=== PATIENT | female | born 1945 ===

== ENCOUNTER 2019-12-31 08:35 | Inpatient (IN) | payer MEDICARE, MEDICAID ==
[2019-12-31] MEDS ORDERED: Acetaminophen 325 MG Tab PO PRN (12:35)
[2019-12-31] MEDS ORDERED: Albuterol/Ipratropium 3.0-0.5 MG/3 ML Neb Soln INH PRN (12:45)
[2019-12-31] MEDS ORDERED: Aluminum Hydroxide/Magnesium Hydroxide/Simethicone Susp 30 ML Cup PO PRN (12:45)
[2019-12-31] MEDS ORDERED: Bisacodyl 10 MG Supp RECTAL PRN (12:45)
[2019-12-31] MEDS ORDERED: Nitroglycerin 0.4 MG Tab.SL SL PRN (12:47)
[2019-12-31] MEDS ORDERED: Docusate Sodium 100 MG Cap PO PRN (12:47)
[2019-12-31] MEDS ORDERED: Hydrocortisone 1% Crm 30 GM Tube TOP PRN (12:47)
--- NOTE | 2019-12-31 12:51 | PCM.HP ---
H&P History of Present Illness - General Date of Service: 12/31/19 Admit Problem/Dx: Admission Diagnosis/Problem Admission Diagnosis/Problem Pneumonia Source of Information: Patient History Limitations: Reports: No Limitations - History of Present Illness Initial Comments - Free Text/Narative: Patient is a 74 year-old female with a medical history of COPD on home oxygen at night, type 2 diabetes, chronic leiva due to neurogenic bladder who was hospitalized for acute on chronic hypoxic respiratory failure due to COVID-19 pneumonia. She received treatment with Decadron, antibiotics, convalescent plasma and Remdesevir. Patient also had E Coli UTI treated with antibiotics. Patient is requiring oxygen supplementation. She complains of cough. She denies fever. She feels like she has made clinical improvement since hospitalized. She was admitted to [facility] today. - Related Data Allergies/Adverse Reactions: Allergies Allergy/AdvReac Type Severity Reaction Status Date / Time brimonidine Allergy Other Verified 12/31/19 10:06 Home Medications: Home Meds Acetaminophen [Pain Relief] 1,000 mg PO Q6HR PRN 12/31/19 [History] Albuterol [Proventil HFA] 2 puff INH Q4HR PRN 12/31/19 [History] Albuterol/Ipratropium [DuoNeb 3.0-0.5 MG/3 ML] 3 ml INH Q6HR PRN 12/31/19 [History] Alum Hydrox/Mag Hydrox/Simeth [Maalox Advanced] 30 ml PO Q4HR PRN 12/31/19 [History] Ascorbic Acid [Vitamin C] 250 mg PO DAILY 12/31/19 [History] Aspirin [Halfprin] 81 mg PO DAILY 12/31/19 [History] Budesonide/Formoterol Fumarate [Symbicort 160-4.5 Mcg Inhaler] 2 puff INH BID 12/31/19 [History] Calcium Carbonate/Vitamin D3 [Calcium 600-Vit D3 400 Tablet] 1 tab PO BID 12/31/19 [History] Cetirizine [ZyrTEC] 10 mg PO BEDTIME 12/31/19 [History] Cholecalciferol (Vitamin D3) [Vitamin D3] 25 mcg PO DAILY 12/31/19 [History] Cyclobenzaprine [Flexeril] 5 mg PO BEDTIME 12/31/19 [History] Dextran 70/Hypromellose/PF [Genteal Tears 0.1%-0.3% Drop] 1 drop EYEBOTH QID PRN 12/31/19 [History] Docusate Sodium [Colace] 200 mg PO DAILY PRN 12/31/19 [History] Hydrocortisone [Hydrocortisone 1% Crm] 1 applic TOP TID PRN 12/31/19 [History] Lactulose 10 gm PO DAILY PRN 12/31/19 [History] Lipase/Protease/Amylase [Zenpep DR 20,000 Unit] 1 cap PO TIDMEALS 12/31/19 [History] Mirtazapine 30 mg PO BEDTIME 12/31/19 [History] Nitroglycerin 0.4 mg PO ASDIRECTED PRN 12/31/19 [History] Nystatin 1 applic TOP BID PRN 12/31/19 [History] Omeprazole 20 mg PO ACBREAKFAST 12/31/19 [History] Plecanatide [Trulance] 3 mg PO DAILY 12/31/19 [History] Pramipexole Di-HCl [Mirapex] 0.5 mg PO BEDTIME 12/31/19 [History] Pravastatin Sodium 10 mg PO BEDTIME 12/31/19 [History] QUEtiapine Fumarate [Seroquel Xr] 300 mg PO BEDTIME 12/31/19 [History] Varenicline Tartrate [Chantix] 1 mg PO BID 12/31/19 [History] bisacodyL [Bisacodyl] 10 mg RECTAL DAILY PRN 12/31/19 [History] dexAMETHasone [Dexamethasone] 6 mg PO DAILY 12/31/19 [History] guaiFENesin/Dextromethorphan [Tussin Dm Liquid] 10 ml PO Q4H PRN 12/31/19 [History] metFORMIN HCl [Metformin HCl] 1,000 mg PO BIDMEALS 12/31/19 [History] polyethylene glycoL 3350 [MiraLAX] 17 gm PO BID 12/31/19 [History] timoloL maleate [Timoptic 0.5% Ophth Soln] 1 drop EYEBOTH DAILY 12/31/19 [History] traZODone HCl [Trazodone HCl] 150 mg PO BEDTIME 12/31/19 [History] witch Arthur [Hemorrhoidal Medicated Wipes] 1 pad RECTAL TID 12/31/19 [History] H&P Review of Systems - Review of Systems: Review Of Systems: See Below General: Reports: No Symptoms HEENT: Reports: No Symptoms Pulmonary: Reports: Shortness of Breath, Cough Cardiovascular: Reports: No Symptoms Gastrointestinal: Reports: No Symptoms Genitourinary: Reports: No Symptoms Musculoskeletal: Reports: No Symptoms Skin: Reports: No Symptoms Psychiatric: Reports: No Symptoms Neurological: Reports: No Symptoms Hematologic/Lymphatic: Reports: No Symptoms Immunologic: Reports: No Symptoms Exam - Exam Exam: See Below - Vital Signs Vital Signs: Last Vital Signs Temp 97.6 F 12/31/19 11:48 Pulse 87 12/31/19 11:48 Resp 20 12/31/19 11:48 BP 155/95 H 12/31/19 11:48 Pulse Ox 89 L 12/31/19 11:48 Weight: 120 lb 12.8 oz - Exam Quality Assessment: Supplemental Oxygen General: Alert, Oriented, 4 HEENT: PERRLA, Hearing Intact, Mucosa Moist & [place], Nares Patent, Normal Nasal Septum, Posterior Pharynx Clear, Conjunctiva Clear, EOMI, EACs Clear, TMs Clear Neck: Supple, Trachea Midline, 2 Lungs: Crackles Cardiovascular: Regular Rate, Regular Rhythm GI/Abdominal Exam: Normal Bowel Sounds, Soft, Non-Tender, No Organomegaly, No Distention, No Abnormal Bruit, No Mass, Pelvis Stable Back Exam: Normal Inspection, Full Range of Motion, NT Extremities: Normal Inspection, Normal Range of Motion, Non-Tender, No Pedal Edema, Normal Capillary Refill Neurological: Cranial Nerves Intact, Reflexes Equal Bilateral Neuro Extensive - Mental Status: Alert, Oriented x3, Normal Mood/Affect, Normal Cognition Neuro Extensive - Motor, Sensory, Reflexes: CN II-XII Intact, Normal Gait, Normal Reflexes Psychiatric: Alert, Normal Affect, Normal Mood Problem List Initiated/Reviewed/Updated: Yes Orders Last 24hrs: Active Orders 24 hr Category Date Time Status Patient Status [ADT] Routine ADT 12/31/19 12:35 Ordered Antiembolic Devices [RC] PER UNIT ROUTINE Care 12/31/19 12:45 Ordered Oxygen Therapy [RC] PRN Care 12/31/19 12:35 Ordered RT Aerosol Therapy [RC] ASDIRECTED Care 12/31/19 12:49 Ordered RT Post Treatment Assessment [RC] Click to Edit Care 12/31/19 12:49 Ordered RT Pre-Treatment Assessment [RC] Click to Edit Care 12/31/19 12:49 Ordered Up ad Lupe [RC] ASDIRECTED Care 12/31/19 12:35 Ordered VTE/DVT Education [RC] PER UNIT ROUTINE Care 12/31/19 12:35 Ordered Vital Signs [RC] PER UNIT ROUTINE Care 12/31/19 12:35 Ordered Regular Diet [DIET] Diet 12/31/19 Lunch Ordered Acetaminophen [TylenoL] Med 12/31/19 12:35 Ordered 650 mg PO Q4H PRN Acetaminophen [Tylenol Extra Strength] Med 12/31/19 12:45 Ordered 1,000 mg PO Q6HR PRN Albuterol [Proventil HFA] Med 12/31/19 12:45 Ordered 2 puff INH Q4HR PRN Albuterol/Ipratropium [DuoNeb 3.0-0.5 MG/3 ML] Med 12/31/19 12:45 Ordered 3 ml INH Q6HR PRN Alum Hydrox/Mag Hydrox/Simeth [Mag-Al Plus] Med 12/31/19 12:45 Ordered 30 ml PO Q4HR PRN Ascorbic Acid [Vitamin C] Med 01/01/20 09:00 Ordered 250 mg PO DAILY Aspirin [Halfprin] Med 01/01/20 09:00 Ordered 81 mg PO DAILY Budesonide/Formoterol Fumarate Med 12/31/19 21:00 Ordered 2 puff INH BID Calcium Carbonate/Vitamin D3 [Calcium 600-Vit D3 400 Med 12/31/19 21:00 Ordered Tablet] 1 tab PO BID Cefpodoxime Med 12/31/19 21:00 Ordered 200 mg PO BID Cetirizine [ZyrTEC] Med 12/31/19 21:00 Ordered 10 mg PO BEDTIME Cholecalciferol (Vitamin D3) [Vitamin D3] Med 01/01/20 09:00 Ordered 25 mcg PO DAILY Cyclobenzaprine [Flexeril] Med 12/31/19 21:00 Ordered 5 mg PO BEDTIME Dextran 70/Hypromellose/PF [Genteal Tears 0.1%-0.3% Med 12/31/19 12:47 Ordered Drop] 1 drop EYEBOTH QID PRN Docusate Sodium [Colace] Med 12/31/19 12:47 Ordered 200 mg PO DAILY PRN Enoxaparin [Lovenox] Med 12/31/19 21:00 Ordered 40 mg SUBCUT Q12HR Hydrocortisone [Hydrocortisone 1% Crm] Med 12/31/19 12:47 Ordered 1 applic TOP TID PRN Lactulose [Lactulose] Med 12/31/19 12:47 Ordered 10 gm PO DAILY PRN Lipase/Protease/Amylase [Zenpep DR 20,000 Unit] Med 12/31/19 14:00 Ordered 1 cap PO TID Mirtazapine [Mirtazapine] Med 12/31/19 21:00 Ordered 30 mg PO BEDTIME Nitroglycerin [Nitrostat] Med 12/31/19 12:47 Ordered 0.4 mg SL ASDIRECTED PRN Nystatin [Nystatin] Med 12/31/19 12:47 Ordered 1 applic TOP BID PRN Omeprazole Med 01/01/20 09:00 Ordered 20 mg PO DAILY Plecanatide [Trulance] Med 01/01/20 09:00 Ordered 3 mg PO DAILY Pramipexole Di-HCl Med 12/31/19 21:00 Ordered 0.25 mg PO BEDTIME Pravastatin Sodium [Pravastatin Sodium] Med 12/31/19 21:00 Ordered 10 mg PO BEDTIME QUEtiapine Fumarate [Seroquel] Med 12/31/19 21:00 Ordered 300 mg PO BEDTIME Timolol [Betimol] Med 01/01/20 09:00 Ordered 1 drop EYEBOTH DAILY Varenicline Tartrate [Chantix] Med 12/31/19 21:00 Ordered 1 mg PO BID bisacodyL [Dulcolax] Med 12/31/19 12:45 Ordered 10 mg RECTAL DAILY PRN dexAMETHasone Med 01/01/20 09:00 Ordered 6 mg PO DAILY guaiFENesin [Robitussin] Med 12/31/19 12:47 Ordered 200 mg PO Q4HR PRN metFORMIN HCl [Metformin HCl] Med 12/31/19 21:00 Ordered 1,000 mg PO BID polyethylene glycoL 3350 [MiraLAX] Med 12/31/19 21:00 Ordered 17 gm PO BID traZODone HCl [Trazodone HCl] Med 12/31/19 21:00 Ordered 150 mg PO BEDTIME witch Arthur [Tucks] Med 12/31/19 14:00 Ordered 1 pad TOP TID Antiembolic Hose [OM.PC] Routine Oth 12/31/19 12:35 Ordered Resuscitation Status Routine Resus Stat 12/31/19 12:35 Ordered Assessment/Plan Comment:: COVID-19 pneumonia Acute on chronic hypoxic respiratory failure - complete 10 day course of Decadron - Complete 7 day course of Levaquin - Oxygen as needed UTI - Antibiotics as above Anxiety - Resume home medications Chronic pancreatitis - Resume home pancrelipase GERD - Resume home PPI Type 2 DM - Resume home metformin - SSI
[2019-12-31] MEDS ORDERED: Nystatin Topical Powder 30 GM Bottle TOP PRN (13:33)
[2019-12-31] MEDS ORDERED: Lactulose Soln 10 GM/15 ML 30 ML UD Cup PO PRN (13:37)
[2019-12-31] MEDS ORDERED: Albuterol 6.7 GM Inhaler INH PRN (14:00)
[2019-12-31] MEDS ORDERED: guaiFENesin 100 MG/5 ML Soln 5 ML UD Cup PO PRN (14:00)
[2019-12-31] MEDS ORDERED: Polyvinyl Alcohol 1.4% Ophth Soln 15 ML Bottle EYEBOTH PRN (14:19)
[2019-12-31] MEDS ORDERED: guaiFENesin/Dextromethorphan 100-10 MG/5 ML Soln 5 ML Cup PO PRN (16:02)
[2019-12-31] MEDS: Witch Hazel Medicated Pads 100/Jar TOP SCH ×2 (16:44→22:54)
[2019-12-31] MEDS ORDERED: Glucagon,Human Recombinant 1 MG Vial IM PRN (16:48)
[2019-12-31] MEDS ORDERED: 50% Dextrose in Water 50 ML Syringe IV PRN (16:48)
[2019-12-31] MEDS ORDERED: Sodium Chloride 0.9% 500 ML IV SCH (17:00)
[2019-12-31] MEDS: AMYLASE PO SCH (17:04)
[2019-12-31] MEDS: LIPASE PO SCH (17:04)
[2019-12-31] MEDS: PROTEASE PO SCH (17:04)
[2019-12-31] MEDS: Insulin Lispro 100 Units/ML 3 ML Vial SUBCUT SCH ×2 (17:38→23:01)
[2019-12-31] MEDS ORDERED: QUEtiapine 100 MG Tab PO SCH (21:00)
[2019-12-31] MEDS ORDERED: Non-Formulary Medication 1 Each (Varenicline Tartrate [Chantix] 1 MG) PO SCH (21:00)
[2019-12-31] MEDS ORDERED: metFORMIN 500 MG Tab PO SCH (21:00)
[2019-12-31] MEDS ORDERED: Pramipexole 0.125 MG Tab PO SCH (21:00)
[2019-12-31] MEDS ORDERED: Levofloxacin 500 MG Tab PO SCH (21:30)
[2019-12-31] MEDS: Formoterol/Mometasone 200-5 MCG 8.8 GM Inhaler IH SCH (22:45)
[2019-12-31] MEDS: traZODone 50 MG Tab PO SCH (22:46)
[2019-12-31] MEDS: QUETIAPINE FUMARATE 300 MG PO SCH (22:47)
[2019-12-31] MEDS: Cyclobenzaprine 10 MG Tab PO SCH (22:48)
[2019-12-31] MEDS: Pramipexole 0.125 MG Tab PO SCH (22:48)
[2019-12-31] MEDS: Calcium Carbonate/Vitamin D3 1250 MG-200 Unit Tab PO SCH (22:48)
[2019-12-31] MEDS: Pravastatin 20 MG Tab PO SCH (22:49)
[2019-12-31] MEDS: Mirtazapine 15 MG Tab PO SCH (22:50)
[2019-12-31] MEDS: Loratadine 10 MG Tab PO SCH (22:51)
[2019-12-31] MEDS: Polyethylene Glycol 3350 Powder 17 GM Packet PO SCH (22:54)
[2020-01-01] MEDS: Omeprazole 20 MG Cap.CR PO SCH (06:12)
[2020-01-01 08:57] LABS: ANION GAP 14.3 mEq/L (7-13); CHLORIDE,CL 97 mmol/L (98-107); SODIUM,NA 133 mmol/L (136-145)
[2020-01-01] MEDS ORDERED: Timolol Maleate 0.5% Ophth Soln 5 ML Bottle EYEBOTH SCH (09:00)
[2020-01-01] MEDS ORDERED: Nicotine 14 MG/24 Hr Patch TRDERM SCH (09:00)
[2020-01-01] MEDS ORDERED: Enoxaparin 40 MG/0.4 ML Syringe SUBCUT SCH (09:00)
[2020-01-01] MEDS: Calcium Carbonate/Vitamin D3 1250 MG-200 Unit Tab PO SCH ×2 (09:37→22:01)
[2020-01-01] MEDS: metFORMIN 500 MG Tab PO SCH ×2 (09:37→17:32)
[2020-01-01] MEDS: Aspirin 81 MG Tab.EC PO SCH (09:37)
[2020-01-01] MEDS: Cholecalciferol (Vitamin D3) 25 MCG Tab PO SCH (09:38)
[2020-01-01] MEDS: Ascorbic Acid 500 MG Tab PO SCH (09:38)
[2020-01-01] MEDS: Dexamethasone 4 MG Tab PO SCH (09:39)
[2020-01-01] MEDS: AMYLASE PO SCH ×3 (09:40→17:31)
[2020-01-01] MEDS: PROTEASE PO SCH ×3 (09:40→17:31)
[2020-01-01] MEDS: LIPASE PO SCH ×3 (09:40→17:31)
[2020-01-01] MEDS: Formoterol/Mometasone 200-5 MCG 8.8 GM Inhaler IH SCH ×2 (09:43→21:59)
[2020-01-01] MEDS: Polyethylene Glycol 3350 Powder 17 GM Packet PO SCH ×2 (09:44→22:07)
[2020-01-01] MEDS: Timolol Maleate 0.5% Ophth Soln 5 ML Bottle EYEBOTH SCH (09:44)
[2020-01-01] MEDS: Insulin Lispro 100 Units/ML 3 ML Vial SUBCUT SCH ×4 (09:47→21:56)
[2020-01-01] MEDS: Witch Hazel Medicated Pads 100/Jar TOP SCH ×3 (09:50→22:07)
[2020-01-01] MEDS: Pramipexole 0.125 MG Tab PO SCH (22:00)
[2020-01-01] MEDS: Cyclobenzaprine 10 MG Tab PO SCH (22:00)
[2020-01-01] MEDS: traZODone 50 MG Tab PO SCH (22:02)
[2020-01-01] MEDS: Loratadine 10 MG Tab PO SCH (22:02)
[2020-01-01] MEDS: Pravastatin 20 MG Tab PO SCH (22:02)
[2020-01-01] MEDS: Levofloxacin 250 MG Tab PO SCH (22:03)
[2020-01-01] MEDS: Mirtazapine 15 MG Tab PO SCH (22:04)
[2020-01-01] MEDS: QUETIAPINE FUMARATE 300 MG PO SCH (22:05)
[2020-01-02] MEDS: Omeprazole 20 MG Cap.CR PO SCH (05:51)
[2020-01-02] MEDS: Aspirin 81 MG Tab.EC PO SCH (08:14)
[2020-01-02] MEDS: Dexamethasone 4 MG Tab PO SCH (08:14)
[2020-01-02] MEDS: Calcium Carbonate/Vitamin D3 1250 MG-200 Unit Tab PO SCH ×2 (08:14→23:31)
[2020-01-02] MEDS: metFORMIN 500 MG Tab PO SCH ×2 (08:15→17:38)
[2020-01-02] MEDS: Ascorbic Acid 500 MG Tab PO SCH (08:15)
[2020-01-02] MEDS: Insulin Lispro 100 Units/ML 3 ML Vial SUBCUT SCH ×4 (08:17→23:35)
[2020-01-02] MEDS: LIPASE PO SCH ×3 (08:19→17:04)
[2020-01-02] MEDS: PROTEASE PO SCH ×3 (08:19→17:04)
[2020-01-02] MEDS: AMYLASE PO SCH ×3 (08:19→17:04)
[2020-01-02] MEDS: Polyethylene Glycol 3350 Powder 17 GM Packet PO SCH ×2 (08:20→23:39)
[2020-01-02] MEDS: Formoterol/Mometasone 200-5 MCG 8.8 GM Inhaler IH SCH ×2 (08:21→23:34)
[2020-01-02] MEDS: Enoxaparin 40 MG/0.4 ML Syringe SUBCUT SCH (08:21)
[2020-01-02] MEDS: Timolol Maleate 0.5% Ophth Soln 5 ML Bottle EYEBOTH SCH (10:10)
[2020-01-02] MEDS: Witch Hazel Medicated Pads 100/Jar TOP SCH ×4 (10:10→23:41)
[2020-01-02] MEDS: Cholecalciferol (Vitamin D3) 25 MCG Tab PO SCH (10:11)
[2020-01-02] MEDS: Cyclobenzaprine 10 MG Tab PO SCH (23:24)
[2020-01-02] MEDS: Pramipexole 0.125 MG Tab PO SCH (23:27)
[2020-01-02] MEDS: Mirtazapine 15 MG Tab PO SCH (23:27)
[2020-01-02] MEDS: traZODone 50 MG Tab PO SCH (23:28)
[2020-01-02] MEDS: Loratadine 10 MG Tab PO SCH (23:29)
[2020-01-02] MEDS: Pravastatin 20 MG Tab PO SCH (23:30)
[2020-01-02] MEDS: Levofloxacin 250 MG Tab PO SCH (23:32)
[2020-01-02] MEDS: QUETIAPINE FUMARATE 300 MG PO SCH (23:38)
[2020-01-03] MEDS: Omeprazole 20 MG Cap.CR PO SCH (06:33)
[2020-01-03 07:16] LABS: ANION GAP 14.7 mEq/L (7-13); CHLORIDE,CL 98 mmol/L (98-107); SODIUM,NA 133 mmol/L (136-145)
[2020-01-03] MEDS: Witch Hazel Medicated Pads 100/Jar TOP SCH ×3 (09:26→22:11)
[2020-01-03] MEDS: metFORMIN 500 MG Tab PO SCH ×2 (09:28→17:10)
[2020-01-03] MEDS: Ascorbic Acid 500 MG Tab PO SCH (09:28)
[2020-01-03] MEDS: Dexamethasone 4 MG Tab PO SCH (09:30)
[2020-01-03] MEDS: Calcium Carbonate/Vitamin D3 1250 MG-200 Unit Tab PO SCH ×2 (09:30→22:08)
[2020-01-03] MEDS: Cholecalciferol (Vitamin D3) 25 MCG Tab PO SCH (09:30)
[2020-01-03] MEDS: Aspirin 81 MG Tab.EC PO SCH (09:31)
[2020-01-03] MEDS: Enoxaparin 40 MG/0.4 ML Syringe SUBCUT SCH (09:31)
[2020-01-03] MEDS: Polyethylene Glycol 3350 Powder 17 GM Packet PO SCH ×2 (09:31→22:08)
[2020-01-03] MEDS: Formoterol/Mometasone 200-5 MCG 8.8 GM Inhaler IH SCH ×2 (09:39→22:10)
[2020-01-03] MEDS: Timolol Maleate 0.5% Ophth Soln 5 ML Bottle EYEBOTH SCH (09:40)
[2020-01-03] MEDS: Insulin Lispro 100 Units/ML 3 ML Vial SUBCUT SCH ×4 (09:40→21:55)
[2020-01-03] MEDS: PROTEASE PO SCH ×3 (09:41→17:10)
[2020-01-03] MEDS: AMYLASE PO SCH ×3 (09:41→17:10)
[2020-01-03] MEDS: LIPASE PO SCH ×3 (09:41→17:10)
--- NOTE | 2020-01-03 12:21 | PCM.PN ---
- General Info Date of Service: 01/03/20 Admission Dx/Problem (Free Text): Admission Diagnosis/Problem Admission Diagnosis/Problem Pneumonia Subjective Update: Patient seen and examined today. Has no new complains. Occasional cough. Afebrile. - Review of Systems General: Reports: No Symptoms HEENT: Reports: No Symptoms Pulmonary: Reports: Shortness of Breath, Cough Cardiovascular: Reports: No Symptoms Gastrointestinal: Reports: No Symptoms Genitourinary: Reports: No Symptoms Musculoskeletal: Reports: No Symptoms Skin: Reports: No Symptoms Neurological: Reports: No Symptoms Psychiatric: Reports: No Symptoms - Patient Data Vitals - Most Recent: Last Vital Signs Temp 97.8 F 01/03/20 08:15 Pulse 84 01/03/20 08:15 Resp 18 01/03/20 08:15 BP 113/86 01/03/20 08:15 Pulse Ox 94 L 01/03/20 08:15 Weight - Most Recent: 120 lb 12.8 oz I&O - Last 24 Hours: Intake & Output 01/02/20 01/03/20 01/03/20 22:59 06:59 14:59 Intake Total 009 328 3756 Output Total 600 Balance 600 -200 1120 Lab Results Last 24 Hours: Laboratory Results - last 24 hr 01/02/20 01/02/20 01/02/20 Range/Units 12:10 17:01 23:13 WBC (5.0-10.0) 10^3/uL RBC (4.2-5.4) 10^6/uL Hgb (12.0-16.0) g/dL Hct (37.0-47.0) % MCV (80-100) fL MCH (27.0-34.0) pg MCHC (33.0-35.0) g/dL Plt Count (150-450) 10^3/uL Sodium (136-145) mmol/L Potassium (3.5-5.1) mmol/L Chloride (98-107) mmol/L Carbon Dioxide (21-32) mmol/L Anion Gap (7-13) mEq/L BUN (7-18) mg/dL Creatinine (0.55-1.02) mg/dL Est Cr Clr Drug Dosing mL/min Estimated GFR (MDRD) Glucose (74-99) mg/dL POC Glucose 237 H 391 H 210 H (83-110) mg/dl Calcium (8.5-10.1) mg/dL 01/03/20 01/03/20 01/03/20 Range/Units 06:45 06:45 08:15 WBC 16.2 H (5.0-10.0) 10^3/uL RBC 3.52 L (4.2-5.4) 10^6/uL Hgb 11.0 L (12.0-16.0) g/dL Hct 33.6 L (37.0-47.0) % MCV 95.5 (80-100) fL MCH 31.3 (27.0-34.0) pg MCHC 32.7 L (33.0-35.0) g/dL Plt Count 551 H D (150-450) 10^3/uL Sodium 133 L (136-145) mmol/L Potassium 4.7 (3.5-5.1) mmol/L Chloride 98 (98-107) mmol/L Carbon Dioxide 25 (21-32) mmol/L Anion Gap 14.7 H (7-13) mEq/L BUN 24 H (7-18) mg/dL Creatinine 0.77 (0.55-1.02) mg/dL Est Cr Clr Drug Dosing 57.13 mL/min Estimated GFR (MDRD) > 60 Glucose 174 H (74-99) mg/dL POC Glucose 197 H (83-110) mg/dl Calcium 10.8 H (8.5-10.1) mg/dL 01/03/20 Range/Units 10:54 WBC (5.0-10.0) 10^3/uL RBC (4.2-5.4) 10^6/uL Hgb (12.0-16.0) g/dL Hct (37.0-47.0) % MCV (80-100) fL MCH (27.0-34.0) pg MCHC (33.0-35.0) g/dL Plt Count (150-450) 10^3/uL Sodium (136-145) mmol/L Potassium (3.5-5.1) mmol/L Chloride (98-107) mmol/L Carbon Dioxide (21-32) mmol/L Anion Gap (7-13) mEq/L BUN (7-18) mg/dL Creatinine (0.55-1.02) mg/dL Est Cr Clr Drug Dosing mL/min Estimated GFR (MDRD) Glucose (74-99) mg/dL POC Glucose 329 H (83-110) mg/dl Calcium (8.5-10.1) mg/dL Med Orders - Current: Current Medications Acetaminophen (Tylenol Extra Strength) 1,000 mg PO Q6HR PRN PRN Reason: Pain Al Hydroxide/Mg Hydroxide (Mag-Al Plus) 30 ml PO Q4HR PRN PRN Reason: Heartburn Albuterol (Proventil Hfa) 0 gm INH Q4HR PRN PRN Reason: Wheezing Artificial Tears (Liquitears 1.4% Ophth Soln) 0 ml EYEBOTH QID PRN PRN Reason: Dry Eyes Ascorbic Acid (Vitamin C) 250 mg PO DAILY [facility] Last Admin: 01/03/20 09:28 Dose: 250 mg Documented by: Aspirin (Halfprin) 81 mg PO DAILY [facility] Last Admin: 01/03/20 09:31 Dose: 81 mg Documented by: Bisacodyl (Dulcolax) 10 mg RECTAL DAILY PRN PRN Reason: Constipation Calcium Carbonate (Calcium Carbonate/Vitamin D 1250 Mg-200 Unit) 1 tab PO BID [facility] Last Admin: 01/03/20 09:30 Dose: 1 tab Documented by: Cholecalciferol (Vitamin D3) 25 mcg PO DAILY [facility] Last Admin: 01/03/20 09:30 Dose: 25 mcg Documented by: Cyclobenzaprine HCl (Flexeril) 5 mg PO BEDTIME [facility] Last Admin: 01/02/20 23:24 Dose: 5 mg Documented by: Dexamethasone (Dexamethasone) 6 mg PO DAILY [facility] Stop: 01/05/20 23:00 Last Admin: 01/03/20 09:30 Dose: 6 mg Documented by: Dextrose/Water (Dextrose 50% In Water) 50 ml IV ASDIRECTED PRN PRN Reason: Hypoglycemia Docusate Sodium (Colace) 200 mg PO DAILY PRN PRN Reason: Constipation Enoxaparin Sodium (Lovenox) 40 mg SUBCUT DAILY [facility] Last Admin: 01/03/20 09:31 Dose: 40 mg Documented by: Glucagon (Glucagen) 1 mg IM ASDIRECTED PRN PRN Reason: Hypoglycemia Guaifenesin/Phenylephrine HCl (Robitussin Dm) 10 ml PO Q4H PRN PRN Reason: Cough Hydrocortisone (Hydrocortisone 1% Crm) 0 gm TOP TID PRN PRN Reason: rectal itching Insulin Human Lispro (Humalog) 0 unit SUBCUT WITHMEALSANDBED [facility]; Protocol Last Admin: 01/03/20 09:40 Dose: 2 units Documented by: Lactulose (Cephulac) 10 gm PO DAILY PRN PRN Reason: Constipation Levofloxacin (Levaquin) 250 mg PO Q24H [facility] Stop: 01/05/20 21:01 Last Admin: 01/02/20 23:32 Dose: 250 mg Documented by: Loratadine (Claritin) 10 mg PO BEDTIME [facility] Last Admin: 01/02/20 23:29 Dose: 10 mg Documented by: Metformin HCl (Glucophage) 1,000 mg PO BIDMEALS [facility] Last Admin: 01/03/20 09:28 Dose: 1,000 mg Documented by: Mirtazapine (Remeron) 30 mg PO BEDTIME [facility] Last Admin: 01/02/20 23:27 Dose: 30 mg Documented by: Mometasone Furoate/Formoterol Fumar (Dulera 200-5 Mcg) 2 puff IH BID [facility] Last Admin: 01/03/20 09:39 Dose: 2 puff Documented by: Nitroglycerin (Nitrostat) 0.4 mg SL ASDIRECTED PRN PRN Reason: Chest Pain Cefpodoxime 200 Mg (Tab) 200 mg PO BID [facility] Stop: 01/07/20 23:00 Last Admin: 01/03/20 09:42 Dose: 200 mg Documented by: Lipase/Protease/Amylase [Zenpep Dr 10,000 Unit] Cap 2 cap PO TIDMEALS [facility] Last Admin: 01/03/20 09:41 Dose: 2 cap Documented by: Non-Formulary Medication (Plecanatide [Trulance]) 3 mg PO DAILY [facility] Quetiapine Fumarate [Seroquel Xr] 300 Mg Tab 300 mg PO BEDTIME [facility] Last Admin: 01/02/20 23:38 Dose: 300 mg Documented by: Nystatin (Nystop) 1 gm TOP BID PRN PRN Reason: Itching Omeprazole (Omeprazole) 20 mg PO ACBREAKFAST [facility] Last Admin: 01/03/20 06:33 Dose: 20 mg Documented by: Polyethylene Glycol (Miralax) 17 gm PO BID [facility] Last Admin: 01/03/20 09:31 Dose: 17 gm Documented by: Pramipexole Dihydrochloride (Mirapex) 0.5 mg PO BEDTIME [facility] Last Admin: 01/02/20 23:27 Dose: 0.5 mg Documented by: Pravastatin Sodium (Pravachol) 10 mg PO BEDTIME [facility] Last Admin: 01/02/20 23:30 Dose: 10 mg Documented by: Timolol Maleate (Timoptic 0.5% Ophth Soln) 0 ml EYEBOTH DAILY [facility] Last Admin: 01/03/20 09:40 Dose: 1 drop Documented by: Trazodone HCl (Trazodone) 150 mg PO BEDTIME [facility] Last Admin: 01/02/20 23:28 Dose: 150 mg Documented by: Junie Fischer (Felipecks) 1 pad TOP TID [facility] Last Admin: 01/03/20 09:26 Dose: 1 pad Documented by: Discontinued Medications Acetaminophen (Tylenol) 650 mg PO Q4H PRN PRN Reason: Pain (Mild 1-3)/fever Enoxaparin Sodium (Lovenox) 40 mg SUBCUT Q12HR [facility] Last Admin: 01/01/20 09:45 Dose: 40 mg Documented by: Sodium Chloride (Normal Saline) 500 mls @ 250 mls/hr IV .BOLUS [facility] Last Infusion: 12/31/19 19:15 Dose: Infused Documented by: Levofloxacin (Levaquin) 500 mg PO Q24H [facility] Stop: 01/07/20 23:00 Last Admin: 12/31/19 22:47 Dose: 500 mg Documented by: Metformin HCl (Glucophage) 1,000 mg PO BID [facility] Last Admin: 12/31/19 22:52 Dose: 1,000 mg Documented by: Miscellaneous Information (Remove Patch) 1 ea TRDERM Q24H [facility] Last Admin: 01/01/20 00:36 Dose: Not Given Documented by: Nicotine (Habitrol) 14 mg TRDERM DAILY [facility] Last Admin: 01/01/20 11:40 Dose: Not Given Documented by: Non-Formulary Medication (Varenicline Tartrate [Chantix]) 1 mg PO BID SYLVIE - Exam Quality Assessment: Supplemental Oxygen General: Alert, Oriented HEENT: Pupils Equal, Pupils Reactive, EOMI, Mucous Membr. Moist/[place] Neck: Supple Lungs: Clear to Auscultation, Normal Respiratory Effort Cardiovascular: Regular Rate, Regular Rhythm GI/Abdominal Exam: Normal Bowel Sounds, Soft, Non-Tender, No Organomegaly, No Distention, No Abnormal Bruit, No Mass, Pelvis Stable Back Exam: Normal Inspection, Full Range of Motion Extremities: Normal Inspection, Normal Range of Motion, Non-Tender, No Pedal Edema, Normal Capillary Refill Skin: Warm, Dry, Intact Neurological: No New Focal Deficit Psy/Mental Status: Alert, Normal Affect, Normal Mood Sepsis Event Note - Evaluation Sepsis Screening Result: No Definite Risk - Focused Exam Vital Signs: Vital Signs Temp Pulse Resp BP Pulse Ox 01/03/20 08:15 97.8 F 84 18 113/86 94 L - Problem List Review Problem List Initiated/Reviewed/Updated: Yes - My Orders Last 24 Hours: My Active Orders 01/02/20 17:00 Communication Order [RC] 01/03/20 08:46 PT Evaluation and Treatment [CONS] Routine 01/03/20 08:47 OT Evaluation and Treatment [CONS] Routine - Plan Plan:: Patient is a 74 year-old female with a medical history of COPD on home oxygen at night, type 2 diabetes, chronic leiva due to neurogenic bladder who was hospitalized for acute on chronic hypoxic respiratory failure due to COVID-19 pneumonia. She received treatment with Decadron, antibiotics, convalescent pl asma and Remdesevir. Patient also had E Coli UTI treated with antibiotics. She was admitted to [facility]. COVID-19 pneumonia Acute on chronic hypoxic respiratory failure Home oxygen 4 L at night, none during daytime. - complete 10 day course of Decadron - Complete 7 day course of Levaquin - Oxygen as needed; attempt to wean UTI - Antibiotics as above Hypercalcemia Calcium of 10.8. Patient has had hypercalcemia before but appears she did not follow up with further workup - Order ionized calcium, TSH, Vitamin D levels, PTH and PTHrP - Start IVF normal saline at 75 cc/h - Patient has history of multiple thyroid nodules that have been stable since 2011 Anxiety - Resume home medications Chronic pancreatitis - Resume home pancrelipase GERD - Resume home PPI Type 2 DM - Resume home metformin - SSI
[2020-01-03] MEDS: Sodium Chloride 0.9% 1,000 ML IV SCH (18:49)
[2020-01-03] MEDS: Pravastatin 20 MG Tab PO SCH (21:58)
[2020-01-03] MEDS: Pramipexole 0.125 MG Tab PO SCH (22:02)
[2020-01-03] MEDS: Levofloxacin 250 MG Tab PO SCH (22:03)
[2020-01-03] MEDS: traZODone 50 MG Tab PO SCH (22:03)
[2020-01-03] MEDS: Mirtazapine 15 MG Tab PO SCH (22:04)
[2020-01-03] MEDS: Cyclobenzaprine 10 MG Tab PO SCH (22:04)
[2020-01-03] MEDS: Loratadine 10 MG Tab PO SCH (22:05)
[2020-01-03] MEDS: QUETIAPINE FUMARATE 300 MG PO SCH (22:07)
[2020-01-04] MEDS: Sodium Chloride 0.9% 1,000 ML IV SCH ×2 (04:28→14:27)
[2020-01-04] MEDS: Omeprazole 20 MG Cap.CR PO SCH (06:26)
[2020-01-04] MEDS: Aspirin 81 MG Tab.EC PO SCH (09:06)
[2020-01-04] MEDS: Cholecalciferol (Vitamin D3) 25 MCG Tab PO SCH (09:06)
[2020-01-04] MEDS: Ascorbic Acid 500 MG Tab PO SCH (09:06)
[2020-01-04] MEDS: metFORMIN 500 MG Tab PO SCH ×2 (09:07→17:23)
[2020-01-04] MEDS: AMYLASE PO SCH ×3 (09:09→17:17)
[2020-01-04] MEDS: LIPASE PO SCH ×3 (09:09→17:17)
[2020-01-04] MEDS: PROTEASE PO SCH ×3 (09:09→17:17)
[2020-01-04] MEDS: PLECANATIDE 3 MG PO SCH (09:10)
[2020-01-04] MEDS: Formoterol/Mometasone 200-5 MCG 8.8 GM Inhaler IH SCH ×2 (09:11→20:59)
[2020-01-04] MEDS: Calcium Carbonate/Vitamin D3 1250 MG-200 Unit Tab PO SCH ×2 (09:11→20:56)
[2020-01-04] MEDS: Timolol Maleate 0.5% Ophth Soln 5 ML Bottle EYEBOTH SCH (09:11)
[2020-01-04] MEDS: Dexamethasone 4 MG Tab PO SCH (09:12)
[2020-01-04] MEDS: Enoxaparin 40 MG/0.4 ML Syringe SUBCUT SCH (09:12)
[2020-01-04] MEDS: Insulin Lispro 100 Units/ML 3 ML Vial SUBCUT SCH ×4 (09:13→21:25)
[2020-01-04] MEDS: Polyethylene Glycol 3350 Powder 17 GM Packet PO SCH ×2 (09:13→21:01)
[2020-01-04] MEDS: Witch Hazel Medicated Pads 100/Jar TOP SCH ×3 (09:14→21:04)
[2020-01-04] MEDS: traZODone 50 MG Tab PO SCH (20:55)
[2020-01-04] MEDS: Pramipexole 0.125 MG Tab PO SCH (20:55)
[2020-01-04] MEDS: Loratadine 10 MG Tab PO SCH (20:56)
[2020-01-04] MEDS: Mirtazapine 15 MG Tab PO SCH (20:56)
[2020-01-04] MEDS: Pravastatin 20 MG Tab PO SCH (20:56)
[2020-01-04] MEDS: Cyclobenzaprine 10 MG Tab PO SCH (20:57)
[2020-01-04] MEDS: QUETIAPINE FUMARATE 300 MG PO SCH (21:03)
[2020-01-05] MEDS: Sodium Chloride 0.9% 1,000 ML IV SCH (00:18)
[2020-01-05] MEDS: Omeprazole 20 MG Cap.CR PO SCH (06:53)
[2020-01-05] MEDS: Polyethylene Glycol 3350 Powder 17 GM Packet PO SCH ×2 (09:12→20:39)
[2020-01-05] MEDS: Calcium Carbonate/Vitamin D3 1250 MG-200 Unit Tab PO SCH ×2 (09:14→20:40)
[2020-01-05] MEDS: Enoxaparin 40 MG/0.4 ML Syringe SUBCUT SCH (09:14)
[2020-01-05] MEDS: Cholecalciferol (Vitamin D3) 25 MCG Tab PO SCH (09:14)
[2020-01-05] MEDS: Ascorbic Acid 500 MG Tab PO SCH (09:14)
[2020-01-05] MEDS: Aspirin 81 MG Tab.EC PO SCH (09:14)
[2020-01-05] MEDS: Dexamethasone 4 MG Tab PO SCH (09:15)
[2020-01-05] MEDS: metFORMIN 500 MG Tab PO SCH ×2 (09:16→17:34)
[2020-01-05] MEDS: Insulin Lispro 100 Units/ML 3 ML Vial SUBCUT SCH ×4 (09:16→20:43)
[2020-01-05] MEDS: LIPASE PO SCH ×3 (09:21→17:35)
[2020-01-05] MEDS: AMYLASE PO SCH ×3 (09:21→17:35)
[2020-01-05] MEDS: PROTEASE PO SCH ×3 (09:21→17:35)
[2020-01-05] MEDS: PLECANATIDE 3 MG PO SCH (09:21)
[2020-01-05] MEDS: Formoterol/Mometasone 200-5 MCG 8.8 GM Inhaler IH SCH ×2 (09:23→20:45)
[2020-01-05] MEDS: Timolol Maleate 0.5% Ophth Soln 5 ML Bottle EYEBOTH SCH (09:24)
[2020-01-05] MEDS: Witch Hazel Medicated Pads 100/Jar TOP SCH ×3 (09:25→20:43)
[2020-01-05] MEDS ORDERED: Glucagon,Human Recombinant 1 MG Vial IM PRN (12:24)
[2020-01-05] MEDS ORDERED: 50% Dextrose in Water 50 ML Syringe IV PRN (12:24)
[2020-01-05] MEDS: Insulin Glarg,Human.Rec.Analog 100 Unit/ML SUBCUT SCH (13:17)
[2020-01-05] MEDS: Pramipexole 0.125 MG Tab PO SCH (20:40)
[2020-01-05] MEDS: traZODone 50 MG Tab PO SCH (20:41)
[2020-01-05] MEDS: Pravastatin 20 MG Tab PO SCH (20:41)
[2020-01-05] MEDS: Mirtazapine 15 MG Tab PO SCH (20:42)
[2020-01-05] MEDS: Loratadine 10 MG Tab PO SCH (20:42)
[2020-01-05] MEDS: Cyclobenzaprine 10 MG Tab PO SCH (20:42)
[2020-01-05] MEDS: QUETIAPINE FUMARATE 300 MG PO SCH (20:46)
[2020-01-05] MEDS: Sodium Chloride 0.9% 10 ML Syringe FLUSH SCH (20:57)
[2020-01-06] MEDS: Omeprazole 20 MG Cap.CR PO SCH (05:36)
[2020-01-06] MEDS: Insulin Lispro 100 Units/ML 3 ML Vial SUBCUT SCH ×4 (09:01→21:59)
[2020-01-06] MEDS: Enoxaparin 40 MG/0.4 ML Syringe SUBCUT SCH (09:27)
[2020-01-06] MEDS: metFORMIN 500 MG Tab PO SCH ×2 (09:28→17:10)
[2020-01-06] MEDS: Calcium Carbonate/Vitamin D3 1250 MG-200 Unit Tab PO SCH ×2 (09:28→21:42)
[2020-01-06] MEDS: Cholecalciferol (Vitamin D3) 25 MCG Tab PO SCH (09:28)
[2020-01-06] MEDS: Ascorbic Acid 500 MG Tab PO SCH (09:28)
[2020-01-06] MEDS: Witch Hazel Medicated Pads 100/Jar TOP SCH ×3 (09:28→21:54)
[2020-01-06] MEDS: Aspirin 81 MG Tab.EC PO SCH (09:28)
[2020-01-06] MEDS: PLECANATIDE 3 MG PO SCH (09:29)
[2020-01-06] MEDS: Sodium Chloride 0.9% 10 ML Syringe FLUSH SCH ×2 (09:29→21:53)
[2020-01-06] MEDS: Timolol Maleate 0.5% Ophth Soln 5 ML Bottle EYEBOTH SCH (09:29)
[2020-01-06] MEDS: Formoterol/Mometasone 200-5 MCG 8.8 GM Inhaler IH SCH ×2 (09:30→21:51)
[2020-01-06] MEDS: PROTEASE PO SCH ×3 (09:30→17:11)
[2020-01-06] MEDS: LIPASE PO SCH ×3 (09:30→17:11)
[2020-01-06] MEDS: AMYLASE PO SCH ×3 (09:30→17:11)
[2020-01-06] MEDS: Polyethylene Glycol 3350 Powder 17 GM Packet PO SCH ×2 (10:52→21:43)
[2020-01-06] MEDS: Insulin Glarg,Human.Rec.Analog 100 Unit/ML SUBCUT SCH (11:47)
[2020-01-06] MEDS: Acetaminophen 500 MG Tab PO PRN ×2 (15:14→21:47)
[2020-01-06] MEDS: Pravastatin 20 MG Tab PO SCH (21:42)
[2020-01-06] MEDS: Cyclobenzaprine 10 MG Tab PO SCH (21:44)
[2020-01-06] MEDS: traZODone 50 MG Tab PO SCH (21:44)
[2020-01-06] MEDS: Loratadine 10 MG Tab PO SCH (21:45)
[2020-01-06] MEDS: Mirtazapine 15 MG Tab PO SCH (21:45)
[2020-01-06] MEDS: Pramipexole 0.125 MG Tab PO SCH (21:47)
[2020-01-06] MEDS: QUETIAPINE FUMARATE 300 MG PO SCH (21:52)
[2020-01-07] MEDS: Omeprazole 20 MG Cap.CR PO SCH (06:21)
[2020-01-07] MEDS: Acetaminophen 500 MG Tab PO PRN ×2 (08:13→18:03)
[2020-01-07] MEDS: metFORMIN 500 MG Tab PO SCH ×2 (08:14→18:02)
[2020-01-07] MEDS: AMYLASE PO SCH ×3 (08:15→18:02)
[2020-01-07] MEDS: PROTEASE PO SCH ×3 (08:15→18:02)
[2020-01-07] MEDS: LIPASE PO SCH ×3 (08:15→18:02)
[2020-01-07] MEDS: Insulin Lispro 100 Units/ML 3 ML Vial SUBCUT SCH ×4 (08:20→23:23)
[2020-01-07] MEDS: Ascorbic Acid 500 MG Tab PO SCH (10:30)
[2020-01-07] MEDS: Cholecalciferol (Vitamin D3) 25 MCG Tab PO SCH (10:30)
[2020-01-07] MEDS: Aspirin 81 MG Tab.EC PO SCH (10:31)
[2020-01-07] MEDS: Calcium Carbonate/Vitamin D3 1250 MG-200 Unit Tab PO SCH ×2 (10:31→23:17)
[2020-01-07] MEDS: PLECANATIDE 3 MG PO SCH (10:35)
[2020-01-07] MEDS: Polyethylene Glycol 3350 Powder 17 GM Packet PO SCH ×2 (10:36→23:23)
[2020-01-07] MEDS: Formoterol/Mometasone 200-5 MCG 8.8 GM Inhaler IH SCH ×2 (10:36→23:22)
[2020-01-07] MEDS: Sodium Chloride 0.9% 10 ML Syringe FLUSH SCH ×2 (10:37→23:36)
[2020-01-07] MEDS: Timolol Maleate 0.5% Ophth Soln 5 ML Bottle EYEBOTH SCH (10:37)
[2020-01-07] MEDS: Enoxaparin 40 MG/0.4 ML Syringe SUBCUT SCH (10:38)
[2020-01-07] MEDS: Witch Hazel Medicated Pads 100/Jar TOP SCH ×3 (10:40→23:23)
[2020-01-07] MEDS: traZODone 50 MG Tab PO SCH (23:16)
[2020-01-07] MEDS: Mirtazapine 15 MG Tab PO SCH (23:16)
[2020-01-07] MEDS: Pramipexole 0.125 MG Tab PO SCH (23:17)
[2020-01-07] MEDS: Loratadine 10 MG Tab PO SCH (23:17)
[2020-01-07] MEDS: QUETIAPINE FUMARATE 300 MG PO SCH (23:19)
[2020-01-07] MEDS: Pravastatin 20 MG Tab PO SCH (23:20)
[2020-01-07] MEDS: Cyclobenzaprine 10 MG Tab PO SCH (23:21)
[2020-01-08] MEDS: Omeprazole 20 MG Cap.CR PO SCH (05:14)
[2020-01-08] MEDS: PROTEASE PO SCH ×4 (08:38→17:20)
[2020-01-08] MEDS: AMYLASE PO SCH ×4 (08:38→17:20)
[2020-01-08] MEDS: LIPASE PO SCH ×4 (08:38→17:20)
[2020-01-08] MEDS: metFORMIN 500 MG Tab PO SCH ×2 (08:39→17:20)
[2020-01-08] MEDS: Calcium Carbonate/Vitamin D3 1250 MG-200 Unit Tab PO SCH (08:39)
[2020-01-08] MEDS: PLECANATIDE 3 MG PO SCH (08:39)
[2020-01-08] MEDS: Ascorbic Acid 500 MG Tab PO SCH (08:40)
[2020-01-08] MEDS: Cholecalciferol (Vitamin D3) 25 MCG Tab PO SCH (08:41)
[2020-01-08] MEDS: Aspirin 81 MG Tab.EC PO SCH (08:41)
[2020-01-08] MEDS: Formoterol/Mometasone 200-5 MCG 8.8 GM Inhaler IH SCH ×2 (08:42→22:53)
[2020-01-08] MEDS: Insulin Lispro 100 Units/ML 3 ML Vial SUBCUT SCH ×4 (08:42→22:58)
[2020-01-08] MEDS: Enoxaparin 40 MG/0.4 ML Syringe SUBCUT SCH (08:42)
[2020-01-08] MEDS: Timolol Maleate 0.5% Ophth Soln 5 ML Bottle EYEBOTH SCH ×2 (08:43)
[2020-01-08] MEDS: Sodium Chloride 0.9% 10 ML Syringe FLUSH SCH ×2 (08:43→23:05)
[2020-01-08] MEDS: Polyethylene Glycol 3350 Powder 17 GM Packet PO SCH ×3 (08:43→22:58)
[2020-01-08] MEDS: Witch Hazel Medicated Pads 100/Jar TOP SCH ×3 (08:44→22:58)
[2020-01-08 09:35] LABS: ANION GAP 12.3 mEq/L (7-13); CHLORIDE,CL 97 mmol/L (98-107); SODIUM,NA 131 mmol/L (136-145)
--- NOTE | 2020-01-08 11:34 | PCM.SN.2 ---
- Free Text/Narrative Note: hyper calcemia noted ionized ca: 6.2 pth: 20 (normal 15-65) will stop calcium and d3 supplements start calcitonin spray recheck periodically
[2020-01-08] MEDS: Calcitonin (Salmon) Nasal Spray 3.7 ML Bottle NAS SCH (12:41)
[2020-01-08] MEDS: Loratadine 10 MG Tab PO SCH (22:55)
[2020-01-08] MEDS: QUETIAPINE FUMARATE 300 MG PO SCH (22:55)
[2020-01-08] MEDS: Mirtazapine 15 MG Tab PO SCH (22:56)
[2020-01-08] MEDS: Cyclobenzaprine 10 MG Tab PO SCH (22:56)
[2020-01-08] MEDS: traZODone 50 MG Tab PO SCH (22:56)
[2020-01-08] MEDS: Pramipexole 0.125 MG Tab PO SCH (22:56)
[2020-01-08] MEDS: Pravastatin 20 MG Tab PO SCH (22:57)
[2020-01-09] MEDS: Omeprazole 20 MG Cap.CR PO SCH (06:24)
[2020-01-09] MEDS: Polyethylene Glycol 3350 Powder 17 GM Packet PO SCH ×2 (09:18→21:15)
[2020-01-09] MEDS: PLECANATIDE 3 MG PO SCH (09:41)
[2020-01-09] MEDS: Calcitonin (Salmon) Nasal Spray 3.7 ML Bottle NAS SCH (09:41)
[2020-01-09] MEDS: Insulin Lispro 100 Units/ML 3 ML Vial SUBCUT SCH ×4 (09:42→21:14)
[2020-01-09] MEDS: Aspirin 81 MG Tab.EC PO SCH (09:43)
[2020-01-09] MEDS: Enoxaparin 40 MG/0.4 ML Syringe SUBCUT SCH (09:43)
[2020-01-09] MEDS: AMYLASE PO SCH ×3 (09:43→18:06)
[2020-01-09] MEDS: PROTEASE PO SCH ×3 (09:43→18:06)
[2020-01-09] MEDS: metFORMIN 500 MG Tab PO SCH ×2 (09:43→18:06)
[2020-01-09] MEDS: LIPASE PO SCH ×3 (09:43→18:06)
[2020-01-09] MEDS: Formoterol/Mometasone 200-5 MCG 8.8 GM Inhaler IH SCH ×2 (09:43→21:23)
[2020-01-09] MEDS: Ascorbic Acid 500 MG Tab PO SCH (09:43)
[2020-01-09] MEDS: Sodium Chloride 0.9% 10 ML Syringe FLUSH SCH ×2 (09:44→21:49)
[2020-01-09] MEDS: Witch Hazel Medicated Pads 100/Jar TOP SCH ×3 (09:44→21:24)
[2020-01-09] MEDS: Timolol Maleate 0.5% Ophth Soln 5 ML Bottle EYEBOTH SCH (09:44)
[2020-01-09] MEDS: Acetaminophen 500 MG Tab PO PRN (18:33)
[2020-01-09] MEDS: Pramipexole 0.125 MG Tab PO SCH (21:17)
[2020-01-09] MEDS: traZODone 50 MG Tab PO SCH (21:19)
[2020-01-09] MEDS: Cyclobenzaprine 10 MG Tab PO SCH (21:19)
[2020-01-09] MEDS: Loratadine 10 MG Tab PO SCH (21:20)
[2020-01-09] MEDS: Mirtazapine 15 MG Tab PO SCH (21:20)
[2020-01-09] MEDS: QUETIAPINE FUMARATE 300 MG PO SCH (21:22)
[2020-01-09] MEDS: Pravastatin 20 MG Tab PO SCH (21:24)
[2020-01-10] MEDS: Omeprazole 20 MG Cap.CR PO SCH (05:41)
[2020-01-10 08:02] LABS: CHLORIDE,CL 96 mmol/L (98-107); SODIUM,NA 130 mmol/L (136-145)
[2020-01-10] MEDS: Polyethylene Glycol 3350 Powder 17 GM Packet PO SCH ×2 (09:02→20:22)
[2020-01-10] MEDS: Enoxaparin 40 MG/0.4 ML Syringe SUBCUT SCH (09:03)
[2020-01-10] MEDS: metFORMIN 500 MG Tab PO SCH ×2 (09:03→17:36)
[2020-01-10] MEDS: Aspirin 81 MG Tab.EC PO SCH (09:04)
[2020-01-10] MEDS: Ascorbic Acid 500 MG Tab PO SCH (09:04)
[2020-01-10] MEDS: Formoterol/Mometasone 200-5 MCG 8.8 GM Inhaler IH SCH ×2 (09:06→20:36)
[2020-01-10] MEDS: PROTEASE PO SCH ×3 (09:07→17:36)
[2020-01-10] MEDS: LIPASE PO SCH ×3 (09:07→17:36)
[2020-01-10] MEDS: AMYLASE PO SCH ×3 (09:07→17:36)
[2020-01-10] MEDS: Calcitonin (Salmon) Nasal Spray 3.7 ML Bottle NAS SCH (09:08)
[2020-01-10] MEDS: PLECANATIDE 3 MG PO SCH (09:08)
[2020-01-10] MEDS: Witch Hazel Medicated Pads 100/Jar TOP SCH ×3 (09:10→20:40)
[2020-01-10] MEDS: Timolol Maleate 0.5% Ophth Soln 5 ML Bottle EYEBOTH SCH (09:10)
[2020-01-10] MEDS: Insulin Lispro 100 Units/ML 3 ML Vial SUBCUT SCH ×4 (09:14→20:35)
[2020-01-10] MEDS: Sodium Chloride 0.9% 10 ML Syringe FLUSH SCH ×2 (09:19→20:36)
[2020-01-10] MEDS: Acetaminophen 500 MG Tab PO PRN (17:36)
[2020-01-10] MEDS: Pramipexole 0.125 MG Tab PO SCH (20:20)
[2020-01-10] MEDS: Mirtazapine 15 MG Tab PO SCH (20:20)
[2020-01-10] MEDS: Cyclobenzaprine 10 MG Tab PO SCH (20:21)
[2020-01-10] MEDS: Pravastatin 20 MG Tab PO SCH (20:21)
[2020-01-10] MEDS: traZODone 50 MG Tab PO SCH (20:22)
[2020-01-10] MEDS: Loratadine 10 MG Tab PO SCH (20:22)
[2020-01-10] MEDS: QUETIAPINE FUMARATE 300 MG PO SCH (20:35)
[2020-01-11] MEDS: Omeprazole 20 MG Cap.CR PO SCH (05:56)
[2020-01-11] MEDS: Insulin Lispro 100 Units/ML 3 ML Vial SUBCUT SCH (07:42)
[2020-01-11] MEDS: Polyethylene Glycol 3350 Powder 17 GM Packet PO SCH (09:49)
[2020-01-11] MEDS: Enoxaparin 40 MG/0.4 ML Syringe SUBCUT SCH (09:50)
[2020-01-11] MEDS: metFORMIN 500 MG Tab PO SCH (09:50)
[2020-01-11] MEDS: Aspirin 81 MG Tab.EC PO SCH (09:51)
[2020-01-11] MEDS: Ascorbic Acid 500 MG Tab PO SCH (09:51)
[2020-01-11] MEDS: Sodium Chloride 0.9% 10 ML Syringe FLUSH SCH (09:52)
[2020-01-11] MEDS: PLECANATIDE 3 MG PO SCH (09:53)
[2020-01-11] MEDS: Timolol Maleate 0.5% Ophth Soln 5 ML Bottle EYEBOTH SCH (09:53)
[2020-01-11] MEDS: AMYLASE PO SCH (09:54)
[2020-01-11] MEDS: LIPASE PO SCH (09:54)
[2020-01-11] MEDS: PROTEASE PO SCH (09:54)
[2020-01-11] MEDS: Formoterol/Mometasone 200-5 MCG 8.8 GM Inhaler IH SCH (09:54)
[2020-01-11] MEDS: Witch Hazel Medicated Pads 100/Jar TOP SCH (09:55)
[2020-01-11] MEDS: Calcitonin (Salmon) Nasal Spray 3.7 ML Bottle NAS SCH (09:55)
--- NOTE | 2020-01-11 10:38 | PCM.DCSUM1 ---
Discharge Summary - Hospital Course Free Text/Narrative:: Patient is a 74 year-old female with a medical history of COPD on home oxygen at night, type 2 diabetes, chronic leiva due to neurogenic bladder who was hospitalized for acute on chronic hypoxic respiratory failure due to COVID-19 pneumonia. She received treatment with Decadron, antibiotics, convalescent plasma and Remdesevir. Patient also had E Coli UTI treated with antibiotics. She was admitted to [facility]. COVID-19 pneumonia Acute on chronic hypoxic respiratory failure Home oxygen 4 L at night, none during daytime. - completed 10 day course of Decadron asa for dvt prophylaxis - continue home oxygen UTI - Completed 7 day course of Levaquin Hypercalcemia stopped vit d and calcium supplement follow periodically Chronic pancreatitis - Resume home pancrelipase GERD - Resume home PPI Type 2 DM - Resume home metformin Diagnosis: Stroke: No - Discharge Data Discharge Date: 01/11/20 Discharge Disposition: Home, Self-Care 01 Condition: Good - Referral to Home Health Primary Care Physician: Tay Ortiz MD - Patient Summary/Data Consults: Consultations 01/03/20 08:46 PT Evaluation and Treatment [CONS] Routine 01/03/20 08:47 OT Evaluation and Treatment [CONS] Routine - Patient Instructions Diet: Heart Healthy Diet, Diabetic Diet Activity: As Tolerated - Discharge Plan *PRESCRIPTION DRUG MONITORING PROGRAM REVIEWED*: Not Applicable *COPY OF PRESCRIPTION DRUG MONITORING REPORT IN PATIENT ALEXA: Not Applicable Prescriptions/Med Rec: Aspirin 325 mg PO DAILY #28 tablet Home Medications: Home Meds Acetaminophen [Pain Relief] 1,000 mg PO Q6HR PRN 12/31/19 [History] Albuterol [Proventil HFA] 2 puff INH Q4HR PRN 12/31/19 [History] Albuterol/Ipratropium [DuoNeb 3.0-0.5 MG/3 ML] 3 ml INH Q6HR PRN 12/31/19 [History] Alum Hydrox/Mag Hydrox/Simeth [Maalox Advanced] 30 ml PO Q4HR PRN 12/31/19 [History] Ascorbic Acid [Vitamin C] 250 mg PO DAILY 12/31/19 [History] Budesonide/Formoterol Fumarate [Symbicort 160-4.5 Mcg Inhaler] 2 puff INH BID 12/31/19 [History] Cetirizine [ZyrTEC] 10 mg PO BEDTIME 12/31/19 [History] Cyclobenzaprine [Flexeril] 5 mg PO BEDTIME 12/31/19 [History] Dextran 70/Hypromellose/PF [Genteal Tears 0.1%-0.3% Drop] 1 drop EYEBOTH QID PRN 12/31/19 [History] Docusate Sodium [Colace] 200 mg PO DAILY PRN 12/31/19 [History] Hydrocortisone [Hydrocortisone 1% Crm] 1 applic TOP TID PRN 12/31/19 [History] Lactulose 10 gm PO DAILY PRN 12/31/19 [History] Lipase/Protease/Amylase [Zenpep DR 20,000 Unit] 1 cap PO TIDMEALS 12/31/19 [Hist ory] Mirtazapine 30 mg PO BEDTIME 12/31/19 [History] Nitroglycerin 0.4 mg PO ASDIRECTED PRN 12/31/19 [History] Nystatin 1 applic TOP BID PRN 12/31/19 [History] Omeprazole 20 mg PO ACBREAKFAST 12/31/19 [History] Plecanatide [Trulance] 3 mg PO DAILY 12/31/19 [History] Pramipexole Di-HCl [Mirapex] 0.5 mg PO BEDTIME 12/31/19 [History] Pravastatin Sodium 10 mg PO BEDTIME 12/31/19 [History] QUEtiapine Fumarate [Seroquel Xr] 300 mg PO BEDTIME 12/31/19 [History] bisacodyL [Bisacodyl] 10 mg RECTAL DAILY PRN 12/31/19 [History] guaiFENesin/Dextromethorphan [Tussin Dm Liquid] 10 ml PO Q4H PRN 12/31/19 [Hi story] metFORMIN HCl [Metformin HCl] 1,000 mg PO BIDMEALS 12/31/19 [History] polyethylene glycoL 3350 [MiraLAX] 17 gm PO BID 12/31/19 [History] timoloL maleate [Timoptic 0.5% Ophth Soln] 1 drop EYEBOTH DAILY 12/31/19 [History] traZODone HCl [Trazodone HCl] 150 mg PO BEDTIME 12/31/19 [History] witch Arthur [Hemorrhoidal Medicated Wipes] 1 pad RECTAL TID 12/31/19 [History] Aspirin 325 mg PO DAILY #28 tablet 01/11/20 [Rx] Aspirin [Halfprin] 81 mg PO DAILY #0 01/11/20 [Rx] Oxygen Therapy Mode: Nasal Cannula Patient Handouts: COVID-19 Frequently Asked Questions, COVID-19, COVID-19: How to Protect Yourself and Others - [facility] Referrals: Tay Ortiz MD [Primary Care Provider] - (in 3-4 days) - Discharge Summary/Plan Comment DC Time >30 min.: No - General Info Date of Service: 01/11/20 - Review of Systems General: Denies: Fever, Weakness Pulmonary: Reports: Shortness of Breath (chronic). Denies: Wheezing Cardiovascular: Denies: Chest Pain, Edema Gastrointestinal: Denies: Abdominal Pain - Patient Data Vitals - Most Recent: Last Vital Signs Temp 98.3 F 01/11/20 08:50 Pulse 98 01/11/20 08:50 Resp 20 01/11/20 08:50 BP 110/69 01/11/20 08:50 Pulse Ox 93 L 01/11/20 08:50 Weight - Most Recent: 122 lb 6.4 oz I&O - Last 24 hours: Intake & Output 01/10/20 01/11/20 01/11/20 22:59 06:59 14:59 Intake Total 1110 125 Output Total 500 Balance 610 125 Lab Results - Last 24 hrs: Laboratory Results - last 24 hr 01/10/20 01/10/20 01/10/20 Range/Units 07:06 11:28 17:13 POC Glucose 178 H 146 H (83-110) mg/dl Procalcitonin <0.05 (<0.10) ng/mL 01/10/20 01/11/20 Range/Units 20:33 07:35 POC Glucose 137 H 129 H (83-110) mg/dl Procalcitonin (<0.10) ng/mL Med Orders - Current: Current Medications Acetaminophen (Tylenol Extra Strength) 1,000 mg PO Q6HR PRN PRN Reason: Pain Last Admin: 01/10/20 17:36 Dose: 1,000 mg Documented by: Al Hydroxide/Mg Hydroxide (Mag-Al Plus) 30 ml PO Q4HR PRN PRN Reason: Heartburn Albuterol (Proventil Hfa) 0 gm INH Q4HR PRN PRN Reason: Wheezing Artificial Tears (Liquitears 1.4% Ophth Soln) 0 ml EYEBOTH QID PRN PRN Reason: Dry Eyes Ascorbic Acid (Vitamin C) 250 mg PO DAILY [facility] Last Admin: 01/11/20 09:51 Dose: 250 mg Documented by: Aspirin (Halfprin) 81 mg PO DAILY [facility] Last Admin: 01/11/20 09:51 Dose: 81 mg Documented by: Bisacodyl (Dulcolax) 10 mg RECTAL DAILY PRN PRN Reason: Constipation Calcitonin [place] (Miacalcin Nasal [place]) 0 ml DINA DAILY [facility] Last Admin: 01/11/20 09:55 Dose: 1 spray Documented by: Cyclobenzaprine HCl (Flexeril) 5 mg PO BEDTIME [facility] Last Admin: 01/10/20 20:21 Dose: 5 mg Documented by: Dextrose/Water (Dextrose 50% In Water) 50 ml IV ASDIRECTED PRN PRN Reason: Hypoglycemia Dextrose/Water (Dextrose 50% In Water) 50 ml IV ASDIRECTED PRN PRN Reason: Hypoglycemia Docusate Sodium (Colace) 200 mg PO DAILY PRN PRN Reason: Constipation Enoxaparin Sodium (Lovenox) 40 mg SUBCUT DAILY [facility] Last Admin: 01/11/20 09:50 Dose: 40 mg Documented by: Glucagon (Glucagen) 1 mg IM ASDIRECTED PRN PRN Reason: Hypoglycemia Glucagon (Glucagen) 1 mg IM ASDIRECTED PRN PRN Reason: Hypoglycemia Guaifenesin/Phenylephrine HCl (Robitussin Dm) 10 ml PO Q4H PRN PRN Reason: Cough Hydrocortisone (Hydrocortisone 1% Crm) 0 gm TOP TID PRN PRN Reason: rectal itching Insulin Human Lispro (Humalog) 0 unit SUBCUT WITHMEALSANDBED [facility]; Protocol Last Admin: 01/11/20 07:42 Dose: Not Given Documented by: Lactulose (Cephulac) 10 gm PO DAILY PRN PRN Reason: Constipation Loratadine (Claritin) 10 mg PO BEDTIME [facility] Last Admin: 01/10/20 20:22 Dose: 10 mg Documented by: Metformin HCl (Glucophage) 1,000 mg PO BIDMEALS [facility] Last Admin: 01/11/20 09:50 Dose: 1,000 mg Documented by: Mirtazapine (Remeron) 30 mg PO BEDTIME [facility] Last Admin: 01/10/20 20:20 Dose: 30 mg Documented by: Mometasone Furoate/Formoterol Fumar (Dulera 200-5 Mcg) 2 puff IH BID [facility] Last Admin: 01/11/20 09:54 Dose: 2 puff Documented by: Nitroglycerin (Nitrostat) 0.4 mg SL ASDIRECTED PRN PRN Reason: Chest Pain Lipase/Protease/Amylase [Zuhair Dr 10,000 Unit] Cap 2 cap PO TIDMEALS [facility] Last Admin: 01/11/20 09:54 Dose: 2 cap Documented by: Plecanatide [ (Trulance] 3 Mg Tab) 3 mg PO DAILY [facility] Last Admin: 01/11/20 09:53 Dose: 3 mg Documented by: Quetiapine Fumarate [Seroquel Xr] 300 Mg Tab 300 mg PO BEDTIME [facility] Last Admin: 01/10/20 20:35 Dose: 300 mg Documented by: Nystatin (Nystop) 1 gm TOP BID PRN PRN Reason: Itching Omeprazole (Omeprazole) 20 mg PO ACBREAKFAST [facility] Last Admin: 01/11/20 05:56 Dose: 20 mg Documented by: Polyethylene Glycol (Miralax) 17 gm PO BID [facility] Last Admin: 01/11/20 09:49 Dose: Not Given Documented by: Pramipexole Dihydrochloride (Mirapex) 0.5 mg PO BEDTIME [facility] Last Admin: 01/10/20 20:20 Dose: 0.5 mg Documented by: Pravastatin Sodium (Pravachol) 10 mg PO BEDTIME [facility] Last Admin: 01/10/20 20:21 Dose: 10 mg Documented by: Sodium Chloride (Saline Flush) 10 ml FLUSH BID [facility] Last Admin: 01/11/20 09:52 Dose: 10 ml Documented by: Timolol Maleate (Timoptic 0.5% Ophth Soln) 0 ml EYEBOTH DAILY [facility] Last Admin: 01/11/20 09:53 Dose: Not Given Documented by: Trazodone HCl (Trazodone) 150 mg PO BEDTIME [facility] Last Admin: 01/10/20 20:22 Dose: 150 mg Documented by: Junie Fischer (Robert) 1 pad TOP TID [facility] Last Admin: 01/11/20 09:55 Dose: Not Given Documented by: Discontinued Medications Acetaminophen (Tylenol) 650 mg PO Q4H PRN PRN Reason: Pain (Mild 1-3)/fever Calcium Carbonate (Calcium Carbonate/Vitamin D 1250 Mg-200 Unit) 1 tab PO BID [facility] Last Admin: 01/08/20 08:39 Dose: 1 tab Documented by: Cholecalciferol (Vitamin D3) 25 mcg PO DAILY [facility] Last Admin: 01/08/20 08:41 Dose: 25 mcg Documented by: Dexamethasone (Dexamethasone) 6 mg PO DAILY [facility] Stop: 01/05/20 23:00 Last Admin: 01/05/20 09:15 Dose: 6 mg Documented by: Enoxaparin Sodium (Lovenox) 40 mg SUBCUT Q12HR [facility] Last Admin: 01/01/20 09:45 Dose: 40 mg Documented by: Sodium Chloride (Normal Saline) 500 mls @ 250 mls/hr IV .BOLUS [facility] Last Infusion: 12/31/19 19:15 Dose: Infused Documented by: Sodium Chloride (Normal Saline) 1,000 mls @ 100 mls/hr IV ASDIRECTED [facility] Last Admin: 01/05/20 00:18 Dose: 100 mls/hr Documented by: Insulin Glargine (Lantus) 10 unit SUBCUT DAILY [facility] Last Admin: 01/06/20 11:47 Dose: Not Given Documented by: Levofloxacin (Levaquin) 500 mg PO Q24H [facility] Stop: 01/07/20 23:00 Last Admin: 12/31/19 22:47 Dose: 500 mg Documented by: Levofloxacin (Levaquin) 250 mg PO Q24H [facility] Stop: 01/05/20 21:01 Last Admin: 01/03/20 22:03 Dose: 250 mg Documented by: Metformin HCl (Glucophage) 1,000 mg PO BID [facility] Last Admin: 12/31/19 22:52 Dose: 1,000 mg Documented by: Miscellaneous Information (Remove Patch) 1 ea TRDERM Q24H [facility] Last Admin: 01/01/20 00:36 Dose: Not Given Documented by: Nicotine (Habitrol) 14 mg TRDERM DAILY [facility] Last Admin: 01/01/20 11:40 Dose: Not Given Documented by: Cefpodoxime 200 Mg (Tab) 200 mg PO BID [facility] Stop: 01/07/20 23:00 Last Admin: 01/07/20 23:20 Dose: 200 mg Documented by: Non-Formulary Medication (Varenicline Tartrate [Chantix]) 1 mg PO BID SYLVIE - Exam Quality Assessment: Reports: Supplemental Oxygen General: Reports: Alert, Oriented Neck: Reports: Supple Lungs: Reports: Normal Respiratory Effort, Decreased Breath Sounds Cardiovascular: Reports: Regular Rate, Regular Rhythm GI/Abdominal Exam: Normal Bowel Sounds, Soft, Non-Tender Extremities: No Pedal Edema Skin: Reports: Warm, Dry Psy/Mental Status: Reports: Alert, Normal Affect, Normal Mood
== END 2020-01-11 11:00 | disposition home or self-care (01) | DRG 177 ==
LOC: DL.MS 11:16 → UNDOADMIN 11:16 → DL.MS 12:35 → EEVIPCON 12:35 → DL.MS 01-03 10:28
PROVIDERS: ADMIT Internal Medicine; ATTEND Internal Medicine
PROC: XW033E5 Introduction of Remdesivir Anti-infective into Peripheral Vein, Percutaneous Approach, New Technology Group 5 (ICD-10-PCS; principal; 2019-12-31)
PROC: XW13325 Transfusion of Convalescent Plasma (Nonautologous) into Peripheral Vein, Percutaneous Approach, New Technology Group 5 (ICD-10-PCS; 2019-12-31)
DX: U07.1 COVID-19 (principal); J96.21 Acute and chronic respiratory failure with hypoxia; J96.22 Acute and chronic respiratory failure with hypercapnia; J12.89 Other viral pneumonia; N39.0 Urinary tract infection, site not specified; K86.1 Other chronic pancreatitis; J44.9 Chronic obstructive pulmonary disease, unspecified; Z96.0 Presence of urogenital implants; E11.9 Type 2 diabetes mellitus without complications; B96.20 Unspecified Escherichia coli [E. coli] as the cause of diseases classified elsewhere; E83.52 Hypercalcemia; K21.9 Gastro-esophageal reflux disease without esophagitis; N31.9 Neuromuscular dysfunction of bladder, unspecified; Z79.84 Long term (current) use of oral hypoglycemic drugs; Z79.899 Other long term (current) drug therapy; Z79.82 Long term (current) use of aspirin
CPT/HCPCS: 36415; 80048; 80053; 80076; 82306; 82330; 82397; 82550; 82728; 82962; 83615; 83970; 84145; 84443; 85025; 85027; 85379; 86140; 97110-GO; 97110-GP; 97116-GP; 97162-GP; 97165-GO; 97530-GO; 97535-GO; 99305; 99308; 99315; A9270-GY; J1650; J1815-GY; J7030; J7040; J8540